=== PATIENT | male | born 1960 | race Caucasian/White ===

== ENCOUNTER 2020-07-04 07:59 | Emergency (ER) | payer OTHER ==
[2020-07-04 08:07] VITALS: BP 165/104; PULSE 66; TEMP 98.1; BMI 31.1
--- NOTE | 2020-07-04 08:30 | PDOC ---
History of Present Illness <PhilipJory - Last Filed: 07/04/20 09:49> - History of Present Illness Initial Comments: 07/04/20 08:30 59 yo male with pmh of htn presents to ED for back pain. Pt explains he was trying to fix a bed and he tried to lift something up and then he had sharp low right sided back pain that goes from his back to right anterior thigh and then radiates down to his leg. He does say he does have some numbness on his toes. Pt explains he took tylenol and lidocaine patch for the pain but did not help. Pt currently denies urinary retention or bowel or urinary incontinence. Pt denies saddle anesthesia. Pt denies weakness in his leg, fevers, chills, IV drug abuse, diabetes, focal bony tenderness. Pt does explain pain is still 10/10 in pain. PMH: HTN PSH: denies Allergies: fruits, shellfish Social: occasional alcohol; denies drugs; denies tobacco PCP: Does not have one <Yuval Morgan - Last Filed: 07/05/20 07:13> - General Chief Complaint: Back Pain Stated Complaint: POSSIBLE BACK INJURY Time Seen by Provider: 07/04/20 08:08 Past History <PhilipJory - Last Filed: 07/04/20 09:49> - Medical History COPD: (Pneumonia) HTN: Yes - Psycho-Social/Smoking History Smoking Status: No Smoking History: Never smoked Have you smoked in the past 12 months: No Number of Cigarettes Smoked Daily: 0 - Substance Abuse Hx (Audit-C & DAST Scrn) How often the patient has a drink containing alcohol: Never Score: In Men: 4 or > Positive; In Women: 3 or > Positive: 0 Screen Result (Pos requires Nsg. Audit-10AR): Negative In the last yr the pt used illegal drug/Rx for NonMed reason: No Score: Yes response is considered Positive: 0 Screen Result (Positive result requires Nsg. DAST-10): Negative <Yuval Morgan - Last Filed: 07/05/20 07:13> - Medical History Allergies/Adverse Reactions: Allergies Allergy/AdvReac Type Severity Reaction Status Date / Time soy [Soy] Allergy Vomiting Verified 07/04/20 08:02 NUTS Allergy Vomiting Uncoded 07/04/20 08:02 SHRIMP Allergy Vomiting Uncoded 10/08/20 08:02 ALMONDS AdvReac Vomiting Uncoded 07/04/20 08:02 APPLES PEARS AdvReac Vomiting Uncoded 07/04/20 08:02 CRANBERRIES,DRIED FRUITS AdvReac Vomiting Uncoded 07/04/20 08:02 Home Medications: Ambulatory Orders Albuterol Sulfate Inhaler - [Ventolin HFA Inhaler -] 1 - 2 inh PO Q4H #1 inhaler 09/24/16 Azithromycin [Zithromax 250mg Tablets -] 250 mg PO UTDICT #6 tab 09/24/16 predniSONE [Deltasone -] 40 mg PO DAILY #10 tablet 09/24/16 Review of Systems - Review of Systems Comments:: GENERAL/CONSTITUTIONAL: No fever or chills. No weakness. HEAD, EYES, EARS, NOSE AND THROAT: No change in vision. No ear pain or discharge. No sore throat. CARDIOVASCULAR: No chest pain or shortness of breath RESPIRATORY: No cough, wheezing, or hemoptysis. GASTROINTESTINAL: No nausea, vomiting, diarrhea or constipation. GENITOURINARY: No dysuria, frequency, or change in urination. No Urinary Retention. MUSCULOSKELETAL: Back pain worse on the right and radiating down right leg. SKIN: No rash NEUROLOGIC: No headache, vertigo, loss of consciousness, or change in strength/sensation. ENDOCRINE: No increased thirst. No abnormal weight change ALLERGIC/IMMUNOLOGIC: No hives or skin allergy. <Yuval Morgan - Last Filed: 07/05/20 07:13> *Physical Exam - Vital Signs Last Vital Signs Temp Pulse Resp BP Pulse Ox 98.1 F 66 18 165/104 H 100 07/04/20 08:02 07/04/20 08:02 07/04/20 08:02 07/04/20 08:02 07/04/20 08:02 <Jory Palacios - Last Filed: 07/04/20 09:49> - Vital Signs Last Vital Signs Temp Pulse Resp BP Pulse Ox 98.1 F 66 18 165/104 H 100 07/04/20 08:02 07/04/20 08:02 07/04/20 08:02 07/04/20 08:02 07/04/20 08:02 - Physical Exam 07/04/20 09:02 GENERAL: Awake, alert, and fully oriented, in distress HEAD: No signs of trauma, normocephalic, atraumatic EYES: EOMI, sclera anicteric, conjunctiva clear ENT: Auricles normal inspection, hearing grossly normal, nares patent, oropharynx clear without exudates. Moist mucosa NECK: Normal ROM, supple, no lymphadenopathy, JVD, or masses LUNGS: No distress, speaks full sentences, clear to auscultation bilaterally HEART: Regular rate and rhythm, normal S1 and S2, no murmurs, rubs or gallops, peripheral pulses normal and equal bilaterally. ABDOMEN: Soft, nontender No guarding, no rebound. No masses EXTREMITIES : Dec ROM in lumbar flexion and side bending. 5/5 muscle strength in upper and lower ext. Straight leg test positive on right side. NEUROLOGICAL: Cranial nerves II through XII grossly intact. Normal speech. Numbness on second and third right toes. SKIN: Warm, Dry, normal turgor, no rashes or lesions noted <Yuval Morgan - Last Filed: 07/05/20 07:13> ED Treatment Course - Medications Given in the ED: ED Medications Discontinued Medications Generic Name Dose Route Start Last Admin Trade Name Freq PRN Reason Stop Dose Admin Ketorolac Tromethamine 60 mg 07/04/20 08:37 07/04/20 09:03 Toradol Injection - IM 07/04/20 08:38 60 mg ONCE ONE Administration Lidocaine 1 patch 07/04/20 08:39 07/04/20 09:03 Lidoderm Patch - TP 07/04/20 08:40 1 patch ONCE ONE Administration Methocarbamol 1,000 mg 07/04/20 08:37 07/04/20 09:02 Robaxin - PO 07/04/20 08:38 1,000 mg ONCE ONE Administration <Jory Palacios - Last Filed: 07/04/20 09:49> Medical Decision Making - Medical Decision Making 07/04/20 09:05 59 yo male with pmh of htn presents with back pain radiating down both legs right greater than left. Pt denies urinary or bowel incontinence and saddle anesthesia. Pt does have numbness in second and third toe. Pt will be given toradol 60 IM, robaxin 60, and lidocaine patch and reassess. Pt ddx of herniated disc vs muscle spasm. 07/04/20 09:30 Pt feels much better and wants to go home. Will recommend taking motrin and tylenol for pain and follow up with PCP (referred) in the next few days. <KevonludaYuval - Last Filed: 07/05/20 07:13> Discharge <Jory Palacios - Last Filed: 07/04/20 09:49> - Discharge Information Problems reviewed: Yes <Milo Morganison - Last Filed: 07/05/20 07:13> - Discharge Information Clinical Impression/Diagnosis: Back pain Qualifiers: Back pain location: low back pain Chronicity: acute Back pain laterality: right Sciatica presence: with sciatica Sciatica laterality: sciatica of right side Qualified Code(s): M54.41 - Lumbago with sciatica, right side Sciatica Qualifiers: Laterality: right Qualified Code(s): M54.31 - Sciatica, right side Condition: Improved Disposition: HOME - Follow up/Referral Referrals: Micheal Tee MD [Staff Physician] - [facility] [place] [facility] [place] [Provider Group] - Patient Discharge Instructions Patient Printed Discharge Instructions: Sciatica, Low Back Pain Additional Instructions: Discharge Instructions: You were seen in the emergency department for back pain. Your symptoms improved with medications. Home Care and Follow Up: - You may use over the counter medications as needed for pain at home. 650- 1000mg acetaminophen (Tylenol) or 600mg ibuprofen (Motrin or Advil) can be used every 6-8 hours. If needed for continued pain, these medications may be alternated every 3-4 hours. For example, if you take ibuprofen at 9am, you may take acetaminophen at noon, ibuprofen at 3pm, etc. - It is strongly recommended that you take ibuprofen with food to help prevent stomach irritation. If you are taking it for more than a day or two, you may consider taking an acid medication such as Pepcid, available over the counter, to protect your stomach. This should be taken first thing in the morning 30-60 minutes before any food or medications. - You may buy a numbing patch that contains lidocaine (the patch is 4% lidocaine) that can be placed over the areas of greatest pain. The lidocaine patch may be placed for 12 hours then removed for 12 hours. - Try using an ice pack for 20 minutes every hour or a heating pad for additional pain control. These should NOT be used over the lidocaine patch, but you may place them over the areas of pain while the patch is off. - Do not stop moving around. As much as you can tolerate, continue to do light exercise and stretching exercises. Increase your activity level as much as you can tolerate daily. - If your pain does not improve over the next week, you have been referred to [facility] for follow up. - Seek immediate medical care if you have significant worsening of your symptoms, bowel/bladder incontinence, numbness in your buttocks, inability to walk, leg weakness or numbness, or any other medical emergency.
[2020-07-04] MEDS ORDERED: METHOCARBAMOL 500 MG TABLET PO ONE (08:37)
[2020-07-04] MEDS ORDERED: KETOROLAC TROMETHAMINE 60 MG/2 ML VIAL IM ONE (08:37)
[2020-07-04] MEDS ORDERED: LIDOCAINE 5% TOPICAL PATCH TP ONE (08:39)
[2020-07-04] MEDS ORDERED: KETOROLAC TROMETHAMINE 60 MG/2 ML VIAL ONE (08:56)
[2020-07-04] MEDS ORDERED: METHOCARBAMOL 500 MG TABLET ONE (08:56)
[2020-07-04] MEDS ORDERED: LIDOCAINE 5% TOPICAL PATCH ONE (08:56)
--- NOTE | 2020-07-04 08:57 | PDOC ---
Attending Attestation - Resident Resident Name: Yuval Morgan - ED Attending Attestation I have performed the following: I have examined & evaluated the patient, The case was reviewed & discussed with the resident, I agree w/resident's findings & plan, Exceptions are as noted - HPI HPI: 07/04/20 08:51 59y M presents with back pain. He was lifting a bed when he develped a sudden onst of R flank pain radiating down his leg. He notes he was standing with his leg sstraight and his back bent over when he lifted. pt does endorse some tingling on the 1st and 2nd toe. Took tylenol last night without improvement. Denies sumaya focal numbness/waekness, fever/chills, urinary or bwoel incontinence. No prior history of back problems. denies IVDU - Physicial Exam PE: 07/04/20 09:12 GENERAL: The patient is awake, alert, and fully oriented, Nontoxic - in no acute distress. NECK: Normal range of motion, supple BACK: No focal midline tenderness in thoracic/lumbar spine, mild paraspinal tenderness in the lower lumbar region. EXTREMITIES: Normal range of motion, no edema. pulses intact NEUROLOGICAL: No facial assymetry, Normal speech, normal dorsal/plantar flexion, normal sensation thrught feet except for subjective tingling in the tips of 1st and 2nd toe on R. - Medical Decision Making 07/04/20 09:14 suspect sciatica will treat with analgesia no red flags to suggest cord compresion will reasess, anticiapte dc with outpt fu discussed appropriate lifting methods 07/04/20 10:21 pt feeling improved will dc with outpatient fu return precautions were dsicussed Discharge - Discharge Information Problems reviewed: Yes Clinical Impression/Diagnosis: Back pain Qualifiers: Back pain location: low back pain Chronicity: acute Back pain laterality: right Sciatica presence: with sciatica Sciatica laterality: sciatica of right side Qualified Code(s): M54.41 - Lumbago with sciatica, right side Sciatica Qualifiers: Laterality: right Qualified Code(s): M54.31 - Sciatica, right side Condition: Improved Disposition: HOME - Follow up/Referral Ref[place] [facility] [place] [facility] [place] Group] Micheal Tee MD [Staff Physician] - - Patient Discharge Instructions Patient Printed Discharge Instructions: Sciatica, Low Back Pain Additional Instructions: Discharge Instructions: You were seen in the emergency department for back pain. Your symptoms improved with medications. Home Care and Follow Up: - You may use over the counter medications as needed for pain at home. 650- 1000mg acetaminophen (Tylenol) or 600mg ibuprofen (Motrin or Advil) can be used every 6-8 hours. If needed for continued pain, these medications may be alternated every 3-4 hours. For example, if you take ibuprofen at 9am, you may take acetaminophen at noon, ibuprofen at 3pm, etc. - It is strongly recommended that you take ibuprofen with food to help prevent stomach irritation. If you are taking it for more than a day or two, you may consider taking an acid medication such as Pepcid, available over the counter, to protect your stomach. This should be taken first thing in the morning 30-60 minutes before any food or medications. - You may buy a numbing patch that contains lidocaine (the patch is 4% lidocaine) that can be placed over the areas of greatest pain. The lidocaine patch may be placed for 12 hours then removed for 12 hours. - Try using an ice pack for 20 minutes every hour or a heating pad for additional pain control. These should NOT be used over the lidocaine patch, but you may place them over the areas of pain while the patch is off. - Do not stop moving around. As much as you can tolerate, continue to do light exercise and stretching exercises. Increase your activity level as much as you can tolerate daily. - If your pain does not improve over the next week, you have been referred to [facility] for follow up. - Seek immediate medical care if you have significant worsening of your symptoms, bowel/bladder incontinence, numbness in your buttocks, inability to walk, leg weakness or numbness, or any other medical emergency. - Post Discharge Activity
[2020-07-04] MEDS ORDERED: LIDOCAINE PATCH REMOVAL MC SCH (22:00)
== END 2020-07-04 10:59 | disposition home or self-care (01) ==
LOC: JER 07:59
PROC: 3E0233Z Introduction of Anti-inflammatory into Muscle, Percutaneous Approach (ICD-10-PCS; principal; 2020-07-04)
DX: M54.41 Lumbago with sciatica, right side (principal); M54.31 Sciatica, right side
CPT/HCPCS: 99284-25

== ENCOUNTER 2021-11-16 11:35 | Emergency (ER) | payer OTHER ==
[2021-11-16 11:52] VITALS: BP 124/76; PULSE 67; TEMP 97; BMI 30.4
[2021-11-16] MEDS ORDERED: KETOROLAC TROMETHAMINE 15 MG/ML VIAL IM ONE (12:38)
[2021-11-16] MEDS ORDERED: LIDOCAINE 5% TOPICAL PATCH TP ONE (12:38)
[2021-11-16] MEDS ORDERED: LIDOCAINE 5% TOPICAL PATCH ONE (12:47)
[2021-11-16] MEDS ORDERED: KETOROLAC TROMETHAMINE 15 MG/ML VIAL ONE (12:47)
[2021-11-16] MEDS ORDERED: LIDOCAINE PATCH REMOVAL MC ONE (22:00)
== END 2021-11-16 15:44 | disposition home or self-care (01) ==
LOC: JERFT 11:35 → JER 11:35 → JERFT 15:44
PROC: 3E0233Z Introduction of Anti-inflammatory into Muscle, Percutaneous Approach (ICD-10-PCS; principal; 2021-11-16)
DX: M54.2 Cervicalgia (principal); V49.40XA Driver injured in collision with unspecified motor vehicles in traffic accident, initial encounter
CPT/HCPCS: 72125-TC; 99284-25